=== PATIENT | male | born 1990 | race Caucasian/White ===

== ENCOUNTER 2017-10-15 19:51 | Emergency (ER) | payer OTHER ==
--- NOTE | 2017-10-15 20:37 | RAD ---
INDICATION: Knee pain after skiing injury COMPARISON: None TECHNIQUE: 2 view radiograph of the right knee. FINDINGS: The visualized bones are well-corticated and properly aligned. The joint spaces are properly maintained. There is no radiographic evidence of joint effusion. There is no acute fracture, dislocation or other focal bony abnormality. IMPRESSION: Normal knee radiograph as described above. If the patient's symptoms persist, follow-up imaging is recommended.
[2017-10-15] MEDS ORDERED: Ibuprofen TAB* 800 MG PO ONE (22:57)
[2017-10-15 23:38] VITALS: BP 122/70
--- NOTE | 2017-10-31 23:50 | ED ---
Lower Extremity - HPI Summary HPI Summary: Pt here w/ Rt knee pain after falling while skiing. Not exactly sure how he injured this but may have landed oddly/twisted it earlier today 10/15/2017. No head injury or other areas of pain/injury to report. After injuring knee, had to ambulate back to vehicle - painful. Attempted to splint w/ limited success. Denies numbness, tingling, weakness but has pain w/ movement and weight bearing. No previous injury here. Has not tried anything in regards to medication for pain prior to arrival - came here directly after injury for evaluation. - History of Current Complaint Chief Complaint: EDExtremityLower Stated Complaint: RT KNEE INJURY Time Seen by Provider: 10/15/17 22:39 Hx Obtained From: Patient Pain Intensity: 5 Pain Scale Used: 0-10 Numeric - Allergies/Home Medications Allergies/Adverse Reactions: Allergies Allergy/AdvReac Type Severity Reaction Status Date / Time Penicillins Allergy Rash Verified 10/15/17 22:11 PMH/Surg Hx/FS Hx/Imm Hx Previously Healthy: Yes Endocrine/Hematology History: Denies: Hx Anticoagulant Therapy, Hx Blood Disorders Infectious Disease History: No Infectious Disease History: Denies: Traveled Outside the [place] in Last 30 Days - Social History Lives: With Family Alcohol Use: Daily Hx Substance Use: No Substance Use Type: Reports: None Hx Tobacco Use: Yes - not currently Smoking Status (MU): Former Smoker Review of Systems Constitutional: Negative Cardiovascular: Negative Respiratory: Negative Gastrointestinal: Negative Positive: Arthralgia, Myalgia, Decreased ROM Skin: Negative Neurological: Negative Psychological: Normal All Other Systems Reviewed And Are Negative: Yes Physical Exam Triage Information Reviewed: Yes Vital Signs On Initial Exam: Initial Vitals Temp Pulse Resp BP Pulse Ox 98.5 F 111 14 109/58 96 10/15/17 19:55 10/15/17 19:55 10/15/17 19:55 10/15/17 19:55 10/15/17 19:55 Vital Signs Reviewed: Yes Appearance: Positive: Well-Appearing, No Pain Distress - at rest - appears uncomfortable with moving affected area, Well-Nourished Skin: Positive: Warm, Skin Color Reflects Adequate Perfusion - no erythema, no ecchymosis,no skin breakdown, Dry Head/Face: Positive: Normal Head/Face Inspection Eyes: Positive: EOMI ENT: Positive: Hearing grossly normal Respiratory/Lung Sounds: Positive: Breath Sounds Present Cardiovascular: Positive: Normal, Pulses are Symmetrical in both Upper and Lower Extremities. Negative: Leg Edema Left, Leg Edema Right Abdomen Description: Positive: Nontender, Soft Musculoskeletal: Positive: Strength/ROM Intact - toes, ankle and hip on affected side (Rt LE) - limited ROM knee d/t pain - no gross defromity however pt has mild edema about the anterior region of the knee, Pain @ - Rt knee is TTP along joint lines and w/ rotational movements - no sha laxity appreciated Neurological: Positive: Normal, Sensory/Motor Intact, Alert, Oriented to Person Place, Time, CN Intact II-III Diagnostics - Vital Signs Vital Signs Temp Pulse Resp BP Pulse Ox 10/15/17 23:37 98.5 F 61 16 122/70 97 10/15/17 19:55 98.5 F 111 14 109/58 96 - Laboratory Lab Statement: Any lab studies that have been ordered have been reviewed, and results considered in the medical decision making process. Lower Extremity Course/Dx - Course Course Of Treatment: XR reviewed: no acute findings. suspect connective injury w/o complete tear - Diagnoses Provider Diagnoses: Right knee sprain Discharge - Discharge Plan Condition: Stable Disposition: HOME Patient Education Materials: Knee Sprain (ED), Crutch Instructions (ED), Knee Immobilizer (ED) Forms: *Work Release Referrals: [facility] [Outside] Julien Becker MD [Medical Doctor] - No Primary Care Phys,NOPCP [Primary Care Provider] - Additional Instructions: You appear to have a sprain of your right knee. If you find a local PCP, you may follow up with them in 1-2 weeks. If your pain persists at 2 weeks, you may follow up with an orthopedist specialist. Both contact numbers have been provided here for you. In the meantime, remain non-weightbearing and wear knee immobilizer along with rest, ice, elevation of your leg. May also alternate ibuprofen with acetaminophen for pain. Take time to remove the immobilizer daily in an effort to maintain range of motion and reduce atrophy. Make sure to do ankle pumps to prevent stiffness, clots. Stay hydrated and eat foods to help with healing. *If you develop numbness, tingling, weakness, skin discoloration in the meantime , return to the emergency department.
== END 2017-10-15 23:37 | disposition home or self-care (01) ==
LOC: ED 19:51
DX: S83.91XA Sprain of unspecified site of right knee, initial encounter (principal); W19.XXXA Unspecified fall, initial encounter; Y93.23 Activity, snow (alpine) (downhill) skiing, snowboarding, sledding, tobogganing and snow tubing; Y92.9 Unspecified place or not applicable; Z87.891 Personal history of nicotine dependence
CPT/HCPCS: 99282; A9270-GY

== ENCOUNTER 2019-08-26 13:15 | Emergency (ER) | payer SELFPAY ==
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
[2019-08-26] MEDS ORDERED: Ondansetron INJ* 2 MG/ML VIAL IV ONE (13:43)
[2019-08-26] MEDS ORDERED: HYDROmorphone INJ1* 1 MG/ML SYRINGE IV SLOW PU ONE ×2 (13:43→16:35)
[2019-08-26] MEDS ORDERED: ceFAZolin 1 GM ADVAN(*) 1 GM in NS 0.9% 50 ML* 50 ML IVPB ONE ×2 (15:40→17:36)
[2019-08-26] MEDS ORDERED: NS 0.9% 1000 ML** 1,000 ML IV ONE (16:35)
[2019-08-26] MEDS ORDERED: Bupivacaine 0.5% W/EPI SDV* 30 ML VIAL ONE (17:00)
[2019-08-26] MEDS ORDERED: Bupivacaine 0.5% W/EPI SDV* 30 ML VIAL INJ ONE (17:33)
[2019-08-26 18:20] VITALS: BP 121/77
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
== END 2019-08-26 18:19 | disposition home or self-care (01) ==
LOC: ED 13:15
DX: S81.822A Laceration with foreign body, left lower leg, initial encounter (principal); V86.59XA Driver of other special all-terrain or other off-road motor vehicle injured in nontraffic accident, initial encounter; Y93.89 Activity, other specified; Y92.9 Unspecified place or not applicable; Z88.0 Allergy status to penicillin; Z87.891 Personal history of nicotine dependence
CPT/HCPCS: 12035; 96361; 96365; 96375; 96376; 99283; J0690; J1170; J2405